=== PATIENT | male | born 1980 ===

== ENCOUNTER 2022-08-24 22:15 | Inpatient (IN) | payer OTHER ==
[~2022-08-24 22:15] MED LIST: Iopamidol-370 76% 500 ML 1 ML ONE
[2022-08-24 22:33] LABS: Hemoglobin 15.8 g/dL (14.0-18.0); Mean Corpuscular HGB CONC 33.3 g/dL (32.0-36.0); Mean Corpuscular Hemoglobin 30.8 pg (27.0-31.0); Mean Corpuscular Volume 92.5 fL (78.0-98.0); Mean Platelet Volume 8.2 fL (7.4-10.4); Platelet Count 231 thou/uL (130-400); RBC Distribution Width 12.6 % (11.5-14.5); Red Blood Cell (RBC) Count 5.14 mill/uL (4.70-6.10)
[2022-08-24 22:42] LABS: INR-International Normal Ratio 1.1; PTT 27.8 sec (22.9-36.1); Prothrombin Time 13.8 sec (12.0-14.7)
[2022-08-24 22:46] LABS: Eosinophils 2 % (0-10); Lymphocytes 32 % (21-51); MDiff Complete? YES; Monocytes 11 % (0-10); Neutrophil 54 % (42-75); Platelet Morphology Comment Appears Adequate; RBC Morphology Normal; Reactive Lymphocytes 1 % (0-10)
[2022-08-24 22:55] LABS: Chloride 110 mmol/L (98-107); Sodium 139 mmol/L (136-145)
[2022-08-24 23:09] LABS: Alcohol 167 mg/dL (Less than 10); Lipase 31 U/L (8-78)
[2022-08-24] MEDS ORDERED: Dextrose 50% Abboject 50 ML SYRINGE SLOW IVP PRN (23:11)
[2022-08-24] MEDS ORDERED: Ondansetron ODT 4 MG TAB PO PRN (23:11)
[2022-08-24] MEDS ORDERED: Dextrose 5% in Water 1,000 ML IV PRN (23:11)
[2022-08-24] MEDS ORDERED: TETANUS, DIPHTHERIA TOX,ADULT (TDVAX) 0.5 ML VIAL IM ONE (23:11)
[2022-08-24] MEDS ORDERED: Ondansetron PF 4 MG/2 ML Vial IVP PRN (23:11)
[2022-08-24] MEDS ORDERED: traMADol HCl 50 MG TAB PO PRN (23:14)
[2022-08-24 23:21] LABS: Albumin 4.3 g/dL (3.5-5.0)
[2022-08-24 23:23] LABS: Calcium 8.3 mg/dL (7.8-10.44)
[2022-08-24 23:24] LABS: Globulin 3.3 g/dL (2.4-3.5); Glucose 102 mg/dL (70-105); Protein, Total 7.6 g/dL (6.0-8.3)
[2022-08-24 23:25] LABS: Anion Gap 23 mmol/L (10-20); Carbon Dioxide 11 mmol/L (22-29)
[2022-08-24 23:27] LABS: Alkaline Phosphatase 44 U/L (40-110); Calc. Creatinine Clearance 0 mL/min (70-130); Estimated GFR 71
[2022-08-24 23:28] LABS: BUN (Urea Nitrogen) 12 mg/dL (8.9-20.6)
[2022-08-24 23:29] LABS: AST (SGOT) 65 U/L (5-34)
[2022-08-24 23:30] LABS: ALT (SGPT) 32 U/L (8-55)
[2022-08-24] MEDS ORDERED: Midazolam HCl 2 mg/2 ml Vial ONE (23:39)
[2022-08-24] MEDS ORDERED: Ketamine 50 MG/ML (10ML VIAL) ONE (23:40)
[2022-08-24 23:44] LABS: Bacteria/HPF None Seen HPF (None Seen); Bilirubin Negative (Negative); Blood, Urine 2+ (Negative); Clarity Clear (Clear); Glucose, Urine (Dipstick) Normal (Negative); Ketone, Urine Trace mg/dL (Negative); Leukocyte Negative Leu/uL (Negative); Mucous/LPF Rare LPF (<2+); Nitrite Negative (Negative); Protein, Urine (Dipstick) 50 mg/dL (Neg-Trace); Squamous Epithelial None Seen HPF (0-3); Urobilinogen Normal mg/dL (Less than 2); WBC/HPF 0-3 HPF (0-3); pH, Urine 5.5 (5.0-9.0)
[2022-08-25] MEDS ORDERED: Fentanyl 100 MCG/2 ML VIAL ONE ×2 (00:05→09:53)
[2022-08-25 00:17] LABS: Actual Bicarbonate (HCO3v) 20 mEq/L (22-28); Analyzer IN Cardio ER; Base Excess -3.4 mEq/L (-2.0 to +3.0); Calcium, Ionized (venous) 1.01 mmol/L (1.16-1.32); Chloride (VBG) 107 mmol/L (98-106); Potassium (VBG) 4.05 mmol/L (3.70-5.30); Sodium 138.2 mmol/L (133-146); pH (venous) 7.41 (7.32-7.43)
[2022-08-25] MEDS ORDERED: Ondansetron PF 4 MG/2 ML Vial ONE ×2 (00:19→10:26)
[2022-08-25 01:00] LABS: Bilirubin, Total 0.5 mg/dL (0.2-1.2)
[2022-08-25 01:24] LABS: Lactic Acid 3.6 mmol/L (0.5-2.2)
[2022-08-25] MEDS: Acetaminophen 500 MG TAB PO SCH ×5 (02:00→23:54)
[2022-08-25] MEDS: traMADol HCl 50 MG TAB PO SCH ×5 (02:00→23:54)
[2022-08-25] MEDS: Morphine 2 MG/ML VIAL SLOW IVP PRN ×3 (02:05→06:21)
[2022-08-25] MEDS: Lactated Ringer's 1,000 ML IV SCH ×2 (02:05→10:49)
[2022-08-25 02:14] LABS: SARS-CoV-2 NAA Rapid Test Not Detected (NotDetected)
[2022-08-25 05:01] VITALS: BMI 27.0
[2022-08-25 06:12] LABS: #Lymphocytes 1.1 thou/uL (1.20-3.40); #Monocytes 2.4 thou/uL (0.11-0.59); #Neutrophils 15.1 thou/uL (1.40-6.50); %Basophils 0.1 % (0.0-1.0); %Eosinophils 0.1 % (0.0-10.0); %Lymphocytes 5.7 % (21.0-51.0); %Monocytes 12.9 % (0.0-10.0); %Neutrophils 81.2 % (42.0-75.0); Hemoglobin 12.5 g/dL (14.0-18.0); Mean Corpuscular HGB CONC 32.1 g/dL (32.0-36.0); Mean Corpuscular Hemoglobin 29.6 pg (27.0-31.0); Mean Corpuscular Volume 92.4 fL (78.0-98.0); Mean Platelet Volume 8.4 fL (7.4-10.4); Platelet Count 199 thou/uL (130-400); RBC Distribution Width 12.5 % (11.5-14.5); Red Blood Cell (RBC) Count 4.22 mill/uL (4.70-6.10); White Blood Cell (WBC) Count 18.6 thou/uL (4.8-10.8)
[2022-08-25 06:14] LABS: Anion Gap 15 mmol/L (10-20); BUN (Urea Nitrogen) 16 mg/dL (8.9-20.6); Calc. Creatinine Clearance 95 mL/min (70-130); Calcium 7.9 mg/dL (7.8-10.44); Carbon Dioxide 21 mmol/L (22-29); Chloride 111 mmol/L (98-107); Estimated GFR 81; Glucose 106 mg/dL (70-105); Magnesium 1.8 mg/dL (1.6-2.6); Phosphorus 3.2 mg/dL (2.3-4.7); Potassium 4.2 mmol/L (3.5-5.1); Sodium 143 mmol/L (136-145)
[2022-08-25] MEDS: Ibuprofen 600 MG TAB PO SCH ×2 (06:22→15:31)
[2022-08-25] MEDS ORDERED: CEFAZOLIN 2 GM in Sodium Chloride 0.9% 100 ML IVPB SCH (07:45)
[2022-08-25] MEDS ORDERED: Ferrous Sulfate 325 MG TAB PO SCH (08:00)
[2022-08-25] MEDS ORDERED: fentaNYL Citrate/PF 100 MCG/2 ML SYRINGE ONE (09:43)
[2022-08-25] MEDS ORDERED: Midazolam HCl 2 mg/2 ml Vial ONE (09:53)
[2022-08-25] MEDS ORDERED: Ropivacaine 0.5% HCl/PF (150 MG/30 ML VIAL) ONE ×2 (09:54→10:26)
[2022-08-25] MEDS ORDERED: CEFAZOLIN 2 GM VIAL ONE (10:11)
[2022-08-25] MEDS ORDERED: Sodium Chloride 0.9% 100 ML ONE (10:12)
[2022-08-25] MEDS ORDERED: NEOSTIGMINE 3 MG/3 ML SYR 3 MG/3 ML SYRINGE ONE (10:26)
[2022-08-25] MEDS ORDERED: PROPOFOL 200 MG/20 ML VIAL ONE (10:26)
[2022-08-25] MEDS ORDERED: Rocuronium Bromide 10 MG/ML (10ML VIAL) ONE (10:26)
[2022-08-25] MEDS ORDERED: Lidocaine 1% MPF 2 ML VIAL ONE (10:26)
[2022-08-25] MEDS ORDERED: ePHEDrine 50 MG/ML VIAL ONE (10:26)
[2022-08-25] MEDS ORDERED: Glycopyrrolate 0.2 MG/ML 5 ML SYRINGE ONE (10:26)
[2022-08-25] MEDS: Famotidine 20 MG TAB PO SCH ×2 (10:49→20:23)
[2022-08-25] MEDS: Ascorbic Acid 500 mg Chewable Tablet PO SCH (10:49)
[2022-08-25] MEDS: Gabapentin 300 MG CAP PO SCH ×3 (10:49→20:21)
[2022-08-25] MEDS: Ferrous Sulfate 325 MG TAB PO SCH (10:49)
[2022-08-25] MEDS ORDERED: Norepinephrine 4 MG/4 ML VIAL ONE (12:49)
[2022-08-25] MEDS ORDERED: Albumin 5% 500 ML ONE (12:49)
[2022-08-25] MEDS ORDERED: Ondansetron HCl/PF 4 MG/2 ML Vial IVP PRN (13:48)
[2022-08-25] MEDS ORDERED: Promethazine HCl 25 MG/ML VIAL IM PRN (13:48)
[2022-08-25] MEDS ORDERED: Promethazine HCl 25 MG/ML VIAL IVPB PRN (13:48)
[2022-08-25] MEDS: Ibuprofen 200 MG TAB PO SCH ×2 (15:11→23:53)
[2022-08-25] MEDS: CEFAZOLIN 2 GM in Sodium Chloride 0.9% 100 ML IVPB SCH (17:36)
[2022-08-26] MEDS: Cyclobenzaprine 10 MG TAB PO PRN ×3 (01:35→18:42)
[2022-08-26] MEDS: CEFAZOLIN 2 GM in Sodium Chloride 0.9% 100 ML IVPB SCH (01:36)
[2022-08-26] MEDS ORDERED: traMADol HCl 50 MG TAB PO PRN (02:54)
[2022-08-26] MEDS ORDERED: Morphine 4 MG/ML VIAL SLOW IVP SCH (03:15)
[2022-08-26] MEDS: Acetaminophen/Codeine 30-300mg Tablet PO SCH ×4 (03:22→20:50)
[2022-08-26] MEDS: Ibuprofen 200 MG TAB PO SCH (05:47)
[2022-08-26 06:11] LABS: Hemoglobin 7.2 g/dL (14.0-18.0); Mean Corpuscular HGB CONC 32.2 g/dL (32.0-36.0); Mean Corpuscular Hemoglobin 29.6 pg (27.0-31.0); Mean Corpuscular Volume 91.9 fL (78.0-98.0); Mean Platelet Volume 8.6 fL (7.4-10.4); Platelet Count 149 thou/uL (130-400); RBC Distribution Width 12.5 % (11.5-14.5); Red Blood Cell (RBC) Count 2.45 mill/uL (4.70-6.10); White Blood Cell (WBC) Count 13.8 thou/uL (4.8-10.8)
[2022-08-26 06:23] LABS: Anion Gap 9 mmol/L (10-20); BUN (Urea Nitrogen) 14 mg/dL (8.9-20.6); CK (CPK) 1826 U/L (30-200); Calc. Creatinine Clearance 108 mL/min (70-130); Calcium 7.6 mg/dL (7.8-10.44); Carbon Dioxide 28 mmol/L (22-29); Chloride 104 mmol/L (98-107); Estimated GFR 94; Glucose 143 mg/dL (70-105); Magnesium 1.7 mg/dL (1.6-2.6); Phosphorus 2.5 mg/dL (2.3-4.7); Potassium 3.8 mmol/L (3.5-5.1); Sodium 137 mmol/L (136-145)
[2022-08-26] MEDS ORDERED: Magnesium 2 GM/50 ML(in water) 2 GM in Premix Bag 1 BAG IVPB SCH (08:00)
[2022-08-26] MEDS ORDERED: PHOS-NAK 1 PKT PACK PO SCH (08:00)
[2022-08-26 08:43] LABS: Band 16 % (5-11); Lymphocytes 18 % (21-51); MDiff Complete? YES; Monocytes 7 % (0-10); Neutrophil 59 % (42-75); Platelet Morphology Comment Appears Adequate; RBC Morphology Normal
[2022-08-26] MEDS ORDERED: Enoxaparin Sodium 40 MG/0.4 ML SYRINGE SC SCH (09:00)
[2022-08-26] MEDS: Gabapentin 300 MG CAP PO SCH ×3 (09:31→20:50)
[2022-08-26] MEDS: Ascorbic Acid 500 mg Chewable Tablet PO SCH (09:33)
[2022-08-26] MEDS: Ferrous Sulfate 325 MG TAB PO SCH (09:33)
[2022-08-26] MEDS: Famotidine 20 MG TAB PO SCH ×2 (09:33→20:50)
[2022-08-26] MEDS: Senokot S 8.6-50 MG TAB PO SCH ×2 (09:33→20:51)
[2022-08-26] MEDS: Morphine 4 MG/ML VIAL SLOW IVP PRN ×2 (17:21→23:23)
[2022-08-27] MEDS: Cyclobenzaprine 10 MG TAB PO PRN ×3 (03:31→23:36)
[2022-08-27] MEDS: Acetaminophen/Codeine 30-300mg Tablet PO SCH ×5 (03:31→23:36)
[2022-08-27 06:11] LABS: #Lymphocytes 2.1 thou/uL (1.20-3.40); #Monocytes 1.5 thou/uL (0.11-0.59); #Neutrophils 7.7 thou/uL (1.40-6.50); %Basophils 0.3 % (0.0-1.0); %Eosinophils 0.4 % (0.0-10.0); %Lymphocytes 18.5 % (21.0-51.0); %Monocytes 13.5 % (0.0-10.0); %Neutrophils 67.2 % (42.0-75.0); Hemoglobin 6.6 g/dL (14.0-18.0); Mean Corpuscular Hemoglobin 30.3 pg (27.0-31.0); Mean Corpuscular Volume 92.1 fL (78.0-98.0); Mean Platelet Volume 8.1 fL (7.4-10.4); Platelet Count 164 thou/uL (130-400); RBC Distribution Width 12.5 % (11.5-14.5); Red Blood Cell (RBC) Count 2.19 mill/uL (4.70-6.10); White Blood Cell (WBC) Count 11.4 thou/uL (4.8-10.8)
[2022-08-27 06:35] LABS: Anion Gap 11 mmol/L (10-20); BUN (Urea Nitrogen) 12 mg/dL (8.9-20.6); CK (CPK) 1433 U/L (30-200); Calc. Creatinine Clearance 127 mL/min (70-130); Calcium 7.6 mg/dL (7.8-10.44); Carbon Dioxide 28 mmol/L (22-29); Chloride 102 mmol/L (98-107); Estimated GFR 111; Glucose 118 mg/dL (70-105); Magnesium 1.7 mg/dL (1.6-2.6); Potassium 3.5 mmol/L (3.5-5.1); Sodium 137 mmol/L (136-145)
[2022-08-27] MEDS ORDERED: diphenhydrAMINE 25 MG CAP PO SCH (07:15)
[2022-08-27] MEDS ORDERED: Magnesium 2 GM/50 ML(in water) 2 GM in Premix Bag 1 BAG IVPB SCH (08:00)
[2022-08-27] MEDS: Polyethylene Glycol 3350 17 GM Packet PO SCH (08:01)
[2022-08-27] MEDS: Famotidine 20 MG TAB PO SCH ×2 (08:02→20:11)
[2022-08-27] MEDS: Senokot S 8.6-50 MG TAB PO SCH ×2 (08:02→20:12)
[2022-08-27] MEDS: Ferrous Sulfate 325 MG TAB PO SCH ×2 (08:02→20:12)
[2022-08-27] MEDS: Gabapentin 300 MG CAP PO SCH (08:03)
[2022-08-27] MEDS: Ascorbic Acid 500 mg Chewable Tablet PO SCH ×2 (08:04→20:12)
[2022-08-27] MEDS ORDERED: Enoxaparin Sodium 40 MG/0.4 ML SYRINGE SC SCH (09:00)
[2022-08-27] MEDS ORDERED: Potassium Phosphate 30 MMOL in Sodium Chloride 0.9% 250 ML 250 ML IVPB SCH (09:00)
[2022-08-27 12:51] LABS: Hemoglobin 7.6 g/dL (14.0-18.0)
[2022-08-27] MEDS: Pregabalin 50 MG CAP PO SCH (20:10)
[2022-08-27] MEDS: HYDROcodone/Acetaminophen 10/325 mg Tablet PO PRN (20:12)
[2022-08-28] MEDS: HYDROcodone/Acetaminophen 10/325 mg Tablet PO PRN ×4 (05:12→22:33)
[2022-08-28] MEDS: Acetaminophen/Codeine 30-300mg Tablet PO SCH ×5 (05:14→21:08)
[2022-08-28 06:05] LABS: #Eosinphils 0.1 thou/uL (0.0-0.7); #Lymphocytes 2.3 thou/uL (1.20-3.40); #Monocytes 1.6 thou/uL (0.11-0.59); #Neutrophils 7.4 thou/uL (1.40-6.50); %Basophils 0.3 % (0.0-1.0); %Eosinophils 0.8 % (0.0-10.0); %Lymphocytes 20.1 % (21.0-51.0); %Monocytes 13.9 % (0.0-10.0); %Neutrophils 64.9 % (42.0-75.0); Hemoglobin 7.8 g/dL (14.0-18.0); Mean Corpuscular HGB CONC 32.5 g/dL (32.0-36.0); Mean Corpuscular Hemoglobin 30.1 pg (27.0-31.0); Mean Corpuscular Volume 92.6 fL (78.0-98.0); Mean Platelet Volume 8.1 fL (7.4-10.4); Platelet Count 174 thou/uL (130-400); RBC Distribution Width 12.5 % (11.5-14.5); Red Blood Cell (RBC) Count 2.59 mill/uL (4.70-6.10); White Blood Cell (WBC) Count 11.4 thou/uL (4.8-10.8)
[2022-08-28 06:26] LABS: Anion Gap 9 mmol/L (10-20); BUN (Urea Nitrogen) 14 mg/dL (8.9-20.6); Calc. Creatinine Clearance 138 mL/min (70-130); Calcium 7.8 mg/dL (7.8-10.44); Carbon Dioxide 29 mmol/L (22-29); Chloride 100 mmol/L (98-107); Estimated GFR 114; Glucose 100 mg/dL (70-105); Magnesium 1.7 mg/dL (1.6-2.6); Phosphorus 2.9 mg/dL (2.3-4.7); Potassium 3.6 mmol/L (3.5-5.1); Sodium 134 mmol/L (136-145)
[2022-08-28] MEDS ORDERED: Magnesium 2 GM/50 ML(in water) 2 GM in Premix Bag 1 BAG IVPB SCH (07:45)
[2022-08-28] MEDS ORDERED: Potassium Phosphate 15 MMOL in Sodium Chloride 0.9% 250 ML 250 ML IVPB SCH (07:45)
[2022-08-28] MEDS: Famotidine 20 MG TAB PO SCH ×2 (08:38→21:09)
[2022-08-28] MEDS: Senokot S 8.6-50 MG TAB PO SCH ×2 (08:38→21:09)
[2022-08-28] MEDS: Polyethylene Glycol 3350 17 GM Packet PO SCH (08:39)
[2022-08-28] MEDS: Milk Of Magnesia 30 ML UDCUP PO SCH (08:39)
[2022-08-28] MEDS: Pregabalin 50 MG CAP PO SCH ×2 (08:39→21:07)
[2022-08-28] MEDS: Ferrous Sulfate 325 MG TAB PO SCH ×2 (08:39→21:09)
[2022-08-28] MEDS: Ascorbic Acid 500 mg Chewable Tablet PO SCH ×2 (08:48→21:09)
[2022-08-28] MEDS ORDERED: FLU VACC QS2022-23(6MOS UP)/PF 60 MCG/0.5 ML SYRINGE IM ONE (09:00)
[2022-08-28] MEDS ORDERED: Enoxaparin Sodium 40 MG/0.4 ML SYRINGE SC SCH (09:00)
[2022-08-28] MEDS ORDERED: Bisacodyl 10 MG SUPP PR SCH (09:00)
[2022-08-28] MEDS ORDERED: Polyethylene Glycol 3350 17 GM Packet PO SCH (09:00)
[2022-08-28] MEDS ORDERED: CEFAZOLIN 2 GM in Sodium Chloride 0.9% 100 ML IVPB SCH (09:00)
[2022-08-28] MEDS ORDERED: tiZANidine HCl 4 MG TAB PO PRN (11:11)
[2022-08-28] MEDS ORDERED: tiZANidine HCl 4 MG TAB PO SCH (12:00)
[2022-08-28] MEDS: tiZANidine HCl 4 MG TAB PO PRN ×2 (16:31→22:33)
[2022-08-29] MEDS ORDERED: Morphine 2 MG/ML VIAL SLOW IVP PRN (02:09)
[2022-08-29] MEDS: Acetaminophen/Codeine 30-300mg Tablet PO SCH ×3 (03:48→14:47)
[2022-08-29 05:33] LABS: Anion Gap 13 mmol/L (10-20); BUN (Urea Nitrogen) 17 mg/dL (8.9-20.6); Calc. Creatinine Clearance 135 mL/min (70-130); Calcium 8.1 mg/dL (7.8-10.44); Carbon Dioxide 26 mmol/L (22-29); Chloride 97 mmol/L (98-107); Estimated GFR 113; Glucose 101 mg/dL (70-105); Magnesium 1.9 mg/dL (1.6-2.6); Phosphorus 3.4 mg/dL (2.3-4.7); Potassium 3.8 mmol/L (3.5-5.1); Sodium 132 mmol/L (136-145)
[2022-08-29 05:46] LABS: Band 5 % (5-11); Hemoglobin 7.9 g/dL (14.0-18.0); Lymphocytes 22 % (21-51); MDiff Complete? YES; Mean Corpuscular HGB CONC 32.8 g/dL (32.0-36.0); Mean Corpuscular Hemoglobin 30.2 pg (27.0-31.0); Mean Corpuscular Volume 92.2 fL (78.0-98.0); Mean Platelet Volume 7.7 fL (7.4-10.4); Monocytes 15 % (0-10); Neutrophil 58 % (42-75); Platelet Count 223 thou/uL (130-400); RBC Distribution Width 12.4 % (11.5-14.5); Red Blood Cell (RBC) Count 2.63 mill/uL (4.70-6.10); White Blood Cell (WBC) Count 9.4 thou/uL (4.8-10.8)
[2022-08-29] MEDS ORDERED: CEFAZOLIN 2 GM VIAL ONE (07:10)
[2022-08-29] MEDS ORDERED: Sodium Chloride 0.9% 100 ML ONE (07:10)
[2022-08-29] MEDS ORDERED: Midazolam HCl 2 mg/2 ml Vial ONE (07:26)
[2022-08-29] MEDS ORDERED: Fentanyl 100 MCG/2 ML VIAL ONE ×2 (07:26→12:08)
[2022-08-29] MEDS ORDERED: fentaNYL Citrate/PF 100 MCG/2 ML SYRINGE ONE ×3 (07:39→17:34)
[2022-08-29] MEDS ORDERED: Albumin 5% 0 ML ONE (07:42)
[2022-08-29] MEDS ORDERED: Ondansetron PF 4 MG/2 ML Vial ONE ×2 (07:54→17:49)
[2022-08-29] MEDS ORDERED: ePHEDrine 50 MG/ML VIAL ONE (07:54)
[2022-08-29] MEDS ORDERED: PROPOFOL 200 MG/20 ML VIAL ONE ×2 (07:54→17:49)
[2022-08-29] MEDS ORDERED: Rocuronium Bromide 10 MG/ML (10ML VIAL) ONE ×2 (07:54→17:49)
[2022-08-29] MEDS ORDERED: PHENYLEPHRINE-NS 100 MCG/ML 10 ML SYRINGE ONE ×2 (07:54→17:49)
[2022-08-29] MEDS ORDERED: Dexamethasone 20 MG/5 ML VIAL ONE (07:54)
[2022-08-29] MEDS ORDERED: MINERAL OIL/WHITE PETROLATUM 3.5 GM TUBE ONE (08:00)
[2022-08-29] MEDS ORDERED: Dexmedetomidine 200 MCG/2 ML VIAL ONE (08:27)
[2022-08-29] MEDS: Ascorbic Acid 500 mg Chewable Tablet PO SCH ×2 (09:00→20:34)
[2022-08-29] MEDS: Milk Of Magnesia 30 ML UDCUP PO SCH (09:00)
[2022-08-29] MEDS: Ferrous Sulfate 325 MG TAB PO SCH ×2 (09:00→20:35)
[2022-08-29] MEDS: Famotidine 20 MG TAB PO SCH ×2 (09:00→20:34)
[2022-08-29] MEDS: Senokot S 8.6-50 MG TAB PO SCH ×2 (09:00→20:35)
[2022-08-29] MEDS: Pregabalin 50 MG CAP PO SCH ×2 (09:00→20:35)
[2022-08-29] MEDS: Polyethylene Glycol 3350 17 GM Packet PO SCH (09:00)
[2022-08-29] MEDS ORDERED: SUGAMMADEX SODIUM 200 MG/2 ML VIAL ONE ×3 (11:04→17:35)
[2022-08-29] MEDS ORDERED: Promethazine HCl 25 MG/ML VIAL IVPB PRN (13:17)
[2022-08-29] MEDS ORDERED: Promethazine HCl 25 MG/ML VIAL IM PRN (13:17)
[2022-08-29] MEDS ORDERED: Meperidine HCl/PF 25 MG/ML VIAL SLOW IVP PRN (13:17)
[2022-08-29] MEDS ORDERED: Ketorolac Tromethamine 30 MG/ML VIAL IVP PRN (13:17)
[2022-08-29] MEDS ORDERED: Ondansetron HCl/PF 4 MG/2 ML Vial IVP PRN (13:17)
[2022-08-29] MEDS ORDERED: HYDROmorphone 2 MG/ML VIAL SLOW IVP PRN (13:17)
[2022-08-29] MEDS ORDERED: Morphine 4 MG/ML VIAL SLOW IVP PRN (13:36)
[2022-08-29] MEDS: tiZANidine HCl 4 MG TAB PO PRN (13:49)
[2022-08-29] MEDS ORDERED: CEFAZOLIN 2 GM in Sodium Chloride 0.9% 100 ML IVPB SCH (14:00)
[2022-08-29] MEDS ORDERED: Ketorolac Tromethamine 30 MG/ML VIAL IVP SCH (14:45)
[2022-08-29] MEDS: CEFAZOLIN 2 GM in Sodium Chloride 0.9% 100 ML IVPB SCH ×2 (16:21→23:26)
[2022-08-29] MEDS: HYDROcodone/Acetaminophen 10/325 mg Tablet PO PRN (16:27)
[2022-08-29] MEDS ORDERED: diphenhydrAMINE 50 MG/ML VIAL IM PRN (17:04)
[2022-08-29] MEDS ORDERED: Naloxone HCl 0.4 mg/ml Vial IV PRN (17:04)
[2022-08-29] MEDS ORDERED: diphenhydrAMINE 25 MG CAP PO PRN (17:04)
[2022-08-29] MEDS ORDERED: HYDROmorphone 10 mg/100 ml CADD IVPB PRN (17:04)
[2022-08-29] MEDS ORDERED: diphenhydrAMINE 50 MG/ML VIAL IVP PRN (17:04)
[2022-08-29] MEDS ORDERED: Communication Order-Pharmacy FS SCH (17:15)
[2022-08-29] MEDS: Ketorolac Tromethamine 30 MG/ML VIAL IVP SCH ×2 (18:22→23:25)
[2022-08-30] MEDS: Ketorolac Tromethamine 30 MG/ML VIAL IVP SCH ×3 (05:39→18:02)
[2022-08-30] MEDS: HYDROmorphone 10 mg/100 ml CADD IVPB PRN ×2 (06:17→20:38)
[2022-08-30] MEDS: Polyethylene Glycol 3350 17 GM Packet PO SCH (08:13)
[2022-08-30] MEDS: Pregabalin 50 MG CAP PO SCH ×2 (08:14→21:07)
[2022-08-30] MEDS: Ferrous Sulfate 325 MG TAB PO SCH ×2 (08:14→21:07)
[2022-08-30] MEDS: Famotidine 20 MG TAB PO SCH ×2 (08:15→21:06)
[2022-08-30] MEDS: Ascorbic Acid 500 mg Chewable Tablet PO SCH ×2 (08:15→21:05)
[2022-08-30] MEDS: Senokot S 8.6-50 MG TAB PO SCH ×2 (08:15→21:05)
[2022-08-30 08:18] LABS: Mean Corpuscular HGB CONC 32.5 g/dL (32.0-36.0); Mean Corpuscular Hemoglobin 30.3 pg (27.0-31.0); Mean Corpuscular Volume 93.2 fL (78.0-98.0); Mean Platelet Volume 8.1 fL (7.4-10.4); Platelet Count 215 thou/uL (130-400); RBC Distribution Width 13.2 % (11.5-14.5); Red Blood Cell (RBC) Count 2.32 mill/uL (4.70-6.10); White Blood Cell (WBC) Count 12.7 thou/uL (4.8-10.8)
[2022-08-30 09:45] LABS: Band 2 % (5-11); Hypochromia SLIGHT = 6-15 cells (100X) (0-5/hpf); Lymphocytes 9 % (21-51); MDiff Complete? YES; Metamyelocyte 2 % (0-0); Monocytes 8 % (0-10); Neutrophil 79 % (42-75); Platelet Morphology Comment Appears Adequate; Polychromasia SLIGHT = 2-3 cells (100X) (0-2/hpf); Target Cells SLIGHT = 2-5 cells (100X) (0-1/hpf)
[2022-08-30] MEDS ORDERED: Lidocaine 1% (PF) 30 ML VIAL ONE (12:27)
[2022-08-30] MEDS ORDERED: Morphine 4 MG/ML VIAL ONE (13:49)
[2022-08-30] MEDS ORDERED: CEFAZOLIN 2 GM in Sodium Chloride 0.9% 100 ML IVPB SCH (14:30)
[2022-08-30] MEDS ORDERED: Morphine 4 MG/ML VIAL SLOW IVP SCH (14:45)
[2022-08-30] MEDS ORDERED: CEFAZOLIN 2 GM VIAL ONE (17:32)
[2022-08-30] MEDS ORDERED: Sodium Chloride 0.9% 100 ML ONE (17:32)
[2022-08-30] MEDS ORDERED: SUGAMMADEX SODIUM 200 MG/2 ML VIAL ONE (17:45)
[2022-08-30] MEDS ORDERED: PROPOFOL 200 MG/20 ML VIAL ONE (18:07)
[2022-08-30] MEDS ORDERED: Lidocaine 1% PF 5 ML VIAL ONE (18:07)
[2022-08-30] MEDS ORDERED: Rocuronium Bromide 10 MG/ML (10ML VIAL) ONE (18:07)
[2022-08-30] MEDS ORDERED: Fentanyl 100 MCG/2 ML VIAL ONE ×2 (18:51→19:11)
[2022-08-30] MEDS ORDERED: Promethazine HCl 25 MG/ML VIAL IM PRN (18:56)
[2022-08-30] MEDS ORDERED: Ondansetron HCl/PF 4 MG/2 ML Vial IVP PRN (18:56)
[2022-08-30] MEDS ORDERED: Promethazine HCl 25 MG/ML VIAL IVPB PRN (18:56)
[2022-08-30] MEDS ORDERED: Promethazine HCl 25 MG/ML VIAL ONE (19:04)
[2022-08-31] MEDS: Ketorolac Tromethamine 30 MG/ML VIAL IVP SCH ×5 (00:08→23:40)
[2022-08-31] MEDS: tiZANidine HCl 4 MG TAB PO PRN (03:01)
[2022-08-31] MEDS: Pregabalin 50 MG CAP PO SCH ×2 (08:18→20:45)
[2022-08-31] MEDS: Ascorbic Acid 500 mg Chewable Tablet PO SCH ×2 (08:19→20:45)
[2022-08-31] MEDS: Ferrous Sulfate 325 MG TAB PO SCH ×2 (08:19→20:46)
[2022-08-31] MEDS: Senokot S 8.6-50 MG TAB PO SCH ×2 (08:19→20:46)
[2022-08-31] MEDS: Famotidine 20 MG TAB PO SCH ×2 (08:19→20:44)
[2022-08-31] MEDS: Polyethylene Glycol 3350 17 GM Packet PO SCH (08:19)
[2022-08-31] MEDS ORDERED: Artificial Tear Sol 15 ML BOT EA EYE PRN (09:56)
[2022-08-31 11:01] LABS: Anion Gap 12 mmol/L (10-20); BUN (Urea Nitrogen) 19 mg/dL (8.9-20.6); Calc. Creatinine Clearance 146 mL/min (70-130); Calcium 8.3 mg/dL (7.8-10.44); Carbon Dioxide 26 mmol/L (22-29); Chloride 103 mmol/L (98-107); Estimated GFR 116; Glucose 99 mg/dL (70-105); Phosphorus 3.2 mg/dL (2.3-4.7); Potassium 4.1 mmol/L (3.5-5.1); Sodium 137 mmol/L (136-145)
[2022-08-31] MEDS ORDERED: HYDROcodone/Acetaminophen 10/325 mg Tablet PO PRN ×2 (11:20)
[2022-08-31 11:21] LABS: Hemoglobin 7.7 g/dL (14.0-18.0); Mean Corpuscular HGB CONC 31.7 g/dL (32.0-36.0); Mean Corpuscular Hemoglobin 29.4 pg (27.0-31.0); Mean Corpuscular Volume 92.7 fL (78.0-98.0); Mean Platelet Volume 7.9 fL (7.4-10.4); Platelet Count 291 thou/uL (130-400); RBC Distribution Width 13.2 % (11.5-14.5); Red Blood Cell (RBC) Count 2.62 mill/uL (4.70-6.10); White Blood Cell (WBC) Count 10.7 thou/uL (4.8-10.8)
[2022-08-31 11:22] LABS: Eosinophils 1 % (0-10); Hypochromia SLIGHT = 6-15 cells (100X) (0-5/hpf); Lymphocytes 13 % (21-51); MDiff Complete? YES; Microcytosis SLIGHT = 6-15 cells (100X) (0-5/hpf); Monocytes 20 % (0-10); Neutrophil 66 % (42-75); Platelet Morphology Comment Appears Adequate; Polychromasia SLIGHT = 2-3 cells (100X) (0-2/hpf)
[2022-08-31] MEDS ORDERED: Midazolam HCl 2 mg/2 ml Vial IVP PRN (12:04)
[2022-08-31] MEDS ORDERED: HYDROcodone/Acetaminophen 10/325 mg Tablet PO SCH (12:15)
[2022-08-31] MEDS: HYDROmorphone 10 mg/100 ml CADD IVPB PRN (15:51)
[2022-09-01] MEDS: Ketorolac Tromethamine 30 MG/ML VIAL IVP SCH ×4 (05:50→22:15)
[2022-09-01] MEDS: HYDROcodone/Acetaminophen 10/325 mg Tablet PO SCH ×3 (09:01→20:14)
[2022-09-01] MEDS: Ascorbic Acid 500 mg Chewable Tablet PO SCH ×2 (09:05→20:13)
[2022-09-01] MEDS: Pregabalin 50 MG CAP PO SCH ×2 (09:06→20:14)
[2022-09-01] MEDS: Ferrous Sulfate 325 MG TAB PO SCH ×2 (09:06→20:13)
[2022-09-01] MEDS: Senokot S 8.6-50 MG TAB PO SCH ×2 (09:06→20:14)
[2022-09-01] MEDS: Famotidine 20 MG TAB PO SCH ×2 (09:06→20:13)
[2022-09-01] MEDS: Polyethylene Glycol 3350 17 GM Packet PO SCH (09:07)
[2022-09-01] MEDS: HYDROcodone/Acetaminophen 10/325 mg Tablet PO PRN ×2 (17:59→22:14)
[2022-09-02] MEDS: HYDROcodone/Acetaminophen 10/325 mg Tablet PO SCH ×4 (01:35→21:56)
[2022-09-02] MEDS: HYDROcodone/Acetaminophen 10/325 mg Tablet PO PRN ×4 (05:41→17:07)
[2022-09-02] MEDS: Ketorolac Tromethamine 30 MG/ML VIAL IVP SCH ×3 (05:42→17:05)
[2022-09-02] MEDS: Pregabalin 50 MG CAP PO SCH ×2 (09:24→21:56)
[2022-09-02] MEDS: Famotidine 20 MG TAB PO SCH ×2 (09:26→21:56)
[2022-09-02] MEDS: Ascorbic Acid 500 mg Chewable Tablet PO SCH ×2 (09:26→21:55)
[2022-09-02] MEDS: Polyethylene Glycol 3350 17 GM Packet PO SCH (09:35)
[2022-09-02] MEDS: Senokot S 8.6-50 MG TAB PO SCH ×2 (09:35→21:55)
[2022-09-02] MEDS: Ferrous Sulfate 325 MG TAB PO SCH ×2 (09:35→21:55)
[2022-09-02] MEDS: Enoxaparin Sodium 40 MG/0.4 ML SYRINGE SC SCH (12:58)
[2022-09-03] MEDS: Ketorolac Tromethamine 30 MG/ML VIAL IVP SCH ×4 (00:05→17:35)
[2022-09-03] MEDS: HYDROcodone/Acetaminophen 10/325 mg Tablet PO SCH ×4 (02:36→20:08)
[2022-09-03] MEDS: HYDROcodone/Acetaminophen 10/325 mg Tablet PO PRN (05:58)
[2022-09-03] MEDS: Pregabalin 50 MG CAP PO SCH ×2 (08:25→20:09)
[2022-09-03] MEDS: Famotidine 20 MG TAB PO SCH ×2 (08:25→20:09)
[2022-09-03] MEDS: Ferrous Sulfate 325 MG TAB PO SCH ×2 (08:26→20:09)
[2022-09-03] MEDS: Ascorbic Acid 500 mg Chewable Tablet PO SCH ×2 (08:26→20:09)
[2022-09-03] MEDS: Enoxaparin Sodium 40 MG/0.4 ML SYRINGE SC SCH (08:26)
[2022-09-03] MEDS: Senokot S 8.6-50 MG TAB PO SCH ×2 (08:26→20:09)
[2022-09-03] MEDS: Polyethylene Glycol 3350 17 GM Packet PO SCH (08:27)
[2022-09-03] MEDS: tiZANidine HCl 4 MG TAB PO PRN (21:48)
[2022-09-04] MEDS: HYDROcodone/Acetaminophen 10/325 mg Tablet PO PRN ×4 (01:06→18:47)
[2022-09-04] MEDS: HYDROcodone/Acetaminophen 10/325 mg Tablet PO SCH ×4 (03:01→20:14)
[2022-09-04] MEDS: Pregabalin 50 MG CAP PO SCH ×2 (07:30→20:15)
[2022-09-04] MEDS: Senokot S 8.6-50 MG TAB PO SCH ×2 (07:31→20:14)
[2022-09-04] MEDS: Ferrous Sulfate 325 MG TAB PO SCH ×2 (07:31→20:14)
[2022-09-04] MEDS: Famotidine 20 MG TAB PO SCH (07:31)
[2022-09-04] MEDS: Ascorbic Acid 500 mg Chewable Tablet PO SCH ×2 (07:31→20:14)
[2022-09-04] MEDS: Polyethylene Glycol 3350 17 GM Packet PO SCH (07:32)
[2022-09-04] MEDS: Enoxaparin Sodium 40 MG/0.4 ML SYRINGE SC SCH (07:32)
[2022-09-04] MEDS: tiZANidine HCl 4 MG TAB PO PRN ×2 (12:48→20:13)
[2022-09-05] MEDS: HYDROcodone/Acetaminophen 10/325 mg Tablet PO PRN ×4 (00:06→16:04)
[2022-09-05] MEDS: HYDROcodone/Acetaminophen 10/325 mg Tablet PO SCH ×3 (02:02→13:34)
[2022-09-05] MEDS: Senokot S 8.6-50 MG TAB PO SCH (07:45)
[2022-09-05] MEDS: Ascorbic Acid 500 mg Chewable Tablet PO SCH (07:46)
[2022-09-05] MEDS: Ferrous Sulfate 325 MG TAB PO SCH (07:46)
[2022-09-05] MEDS: Pregabalin 50 MG CAP PO SCH (07:47)
[2022-09-05] MEDS: Enoxaparin Sodium 40 MG/0.4 ML SYRINGE SC SCH (07:47)
[2022-09-05] MEDS: Polyethylene Glycol 3350 17 GM Packet PO SCH (07:48)
[2022-09-05 16:15] VITALS: BP 130/78; TEMP 97.9
== END 2022-09-05 16:10 | DRG 492 ==
LOC: ERS 22:15 → SURG A 08-25 01:48
PROVIDERS: ADMIT Surgery; ATTEND Surgery
PROC: 0RSJXZZ Reposition Right Shoulder Joint, External Approach (ICD-10-PCS; principal; 2022-08-25)
PROC: 0PSG04Z Reposition Left Humeral Shaft with Internal Fixation Device, Open Approach (ICD-10-PCS; 2022-08-25)
PROC: 0PSL04Z Reposition Left Ulna with Internal Fixation Device, Open Approach (ICD-10-PCS; 2022-08-25)
PROC: 0PSJ04Z Reposition Left Radius with Internal Fixation Device, Open Approach (ICD-10-PCS; 2022-08-25)
PROC: 0PSGXZZ Reposition Left Humeral Shaft, External Approach (ICD-10-PCS; 2022-08-25)
PROC: 0PSJXZZ Reposition Left Radius, External Approach (ICD-10-PCS; 2022-08-25)
PROC: 0PSLXZZ Reposition Left Ulna, External Approach (ICD-10-PCS; 2022-08-25)
PROC: 30233N1 Transfusion of Nonautologous Red Blood Cells into Peripheral Vein, Percutaneous Approach (ICD-10-PCS; 2022-08-27)
PROC: 0QS404Z Reposition Right Acetabulum with Internal Fixation Device, Open Approach (ICD-10-PCS; 2022-08-29)
PROC: 0RSJXZZ Reposition Right Shoulder Joint, External Approach (ICD-10-PCS; 2022-08-29)
PROC: 0RSJXZZ Reposition Right Shoulder Joint, External Approach (ICD-10-PCS; 2022-08-30)
DX: S52.302A Unspecified fracture of shaft of left radius, initial encounter for closed fracture (principal); S32.402A Unspecified fracture of left acetabulum, initial encounter for closed fracture; S32.411A Displaced fracture of anterior wall of right acetabulum, initial encounter for closed fracture; D62 Acute posthemorrhagic anemia; S42.202A Unspecified fracture of upper end of left humerus, initial encounter for closed fracture; S32.592A Other specified fracture of left pubis, initial encounter for closed fracture; S32.591A Other specified fracture of right pubis, initial encounter for closed fracture; S22.059A Unspecified fracture of T5-T6 vertebra, initial encounter for closed fracture; S22.079A Unspecified fracture of T9-T10 vertebra, initial encounter for closed fracture; E87.1 Hypo-osmolality and hyponatremia; S42.302A Unspecified fracture of shaft of humerus, left arm, initial encounter for closed fracture; M62.82 Rhabdomyolysis; S52.202A Unspecified fracture of shaft of left ulna, initial encounter for closed fracture; M24.411 Recurrent dislocation, right shoulder; G89.18 Other acute postprocedural pain; G89.11 Acute pain due to trauma; F10.129 Alcohol abuse with intoxication, unspecified; S42.141A Displaced fracture of glenoid cavity of scapula, right shoulder, initial encounter for closed fracture; S43.014A Anterior dislocation of right humerus, initial encounter; V29.498A Other motorcycle driver injured in collision with other motor vehicles in traffic accident, initial encounter; Z98.890 Other specified postprocedural states
CPT/HCPCS: 23650; 36415; 36430; 70450; 71045; 71260; 72125; 72170; 74177; 76000; 76377; 80048; 80053; 80307; 81003; 81015; 82533; 82550; 82805; 83605; 83690; 83735; 84100; 85025; 85610; 85730; 86850; 86900; 86901; 90471; 93005; 94760; 96374; 96375; 97139; C1713; C1776; C1874; G0390; J0690; J1100; J1650; J1885; J2250; J2270; J2405; J2550; J2704; J2795; J3010; J3475; J3490; J7050; J7120; P9016; P9045; Q0162; Q9967; U0002